=== PATIENT | male | born 1950 | race Asian ===

== ENCOUNTER 2016-12-31 16:53 | Inpatient (IN) | payer SELFPAY ==
[~2016-12-31] VITALS: Ht 175.3 cm; Wt 64.6 kg
[2016-12-31] MEDS ORDERED: ACETAMINOPHEN 325 MG TABLET PO ONE (17:45)
[2016-12-31 17:55] LABS: BASOPHILS # (AUTO) 0.01 K/uL (0.00-0.20); BASOPHILS % (AUTO) 0.1 % (0.0-2.0); EOSINOPHILS % (AUTO) 0.02 % (1.0-6.0); HEMATOCRIT 38.5 % (41-53); HEMOGLOBIN 12.9 g/dL (13.5-17.5); LYMPHOCYTES # (AUTO) 0.9 K/uL (1.0-4.8); LYMPHOCYTES % (AUTO) 6.9 % (22.0-44.0); MEAN CORPUSCULAR HEMOGLOBIN 27.8 pg (26.0-34.0); MEAN CORPUSCULAR HGB CONC 33.6 G/dL (31.0-37.0); MEAN CORPUSCULAR VOLUME 83 fL (80-100); MONOCYTES % (AUTO) 8.1 % (2.0-9.0); NEUTROPHILS # (AUTO) 10.6 K/uL (1.8-7.7); NEUTROPHILS % (AUTO) 84.8 % (40.0-70.0); PLATELET COUNT (AUTO) 199 K/uL (150-450); RED BLOOD CELL COUNT(AUTO) 4.64 MIL/uL (4.50-5.90); RED CELL DISTRIBUTION WIDTH 13.9 % (11.5-14.5); WHITE BLOOD COUNT (AUTO) 12.5 K/uL (4.5-11.0)
[2016-12-31] MEDS ORDERED: SODIUM CHLORIDE 0.9% 1,000 ML IV ONE ×2 (18:00→18:30)
[2016-12-31 18:11] LABS: ALANINE AMINOTRANSFERASE 42 U/L (12-78); ALBUMIN 2.8 g/dL (3.4-5.0); ANION GAP 11 mmol/L (8-16); ASPARTATE AMINOTRANSFERASE 41 U/L (15-37); BILIRUBIN,TOTAL 0.6 mg/dL (0.1-1.0); CALCIUM, TOTAL 8.2 mg/dL (8.8-10.5); CARBON DIOXIDE 26 mmol/L (22-29); CHLORIDE 91 mmol/L (98-107); CREATININE 1.38 mg/dL (0.60-1.30); GLOMERULAR FILTR. RATE CALC 52 mL/min (>60); POTASSIUM 3.7 mmol/L (3.5-5.1); SODIUM SERUM 128 mmol/L (136-145); TOTAL PROTEIN, SERUM 7.8 g/dL (6.4-8.2); UREA NITROGEN, BLOOD 22 mg/dL (7-18)
[2016-12-31 18:20] LABS: LACTIC ACID 1.8 mmol/L (0.4-2.0)
[2016-12-31] MEDS ORDERED: *CLINICAL-CEFEPIME DOSING CLINICAL ONE ×2 (18:30)
[2016-12-31] MEDS ORDERED: CEFEPIME HCL 1 GM in DEXTROSE 5%-WATER 50 ML IV ONE (18:30)
[2016-12-31] MEDS ORDERED: VANCOMYCIN HCL 1 GM/D5% WATER 200 ML IV ONE (18:30)
[2016-12-31] MEDS ORDERED: KETOROLAC TROMETHAMINE 30 MG/ML VIAL IVP ONE (18:30)
[2016-12-31 18:48] LABS: CREATINE KINASE, TOTAL 539 U/L (39-308); RBC MORPHOLOGY COMMENT NORMAL RBC MORPH
[2016-12-31 18:57] LABS: GLUCOSE,POINT OF CARE 379 MG/DL (70-110)
[2016-12-31 19:41] LABS: APPEARANCE,URINE CLEAR (CLEAR); GLUCOSE, URINE (UA) >=1000 mg/dL (NEGATIVE); KETONES,URINE NEGATIVE (NEGATIVE); LEUKOCYTE ESTERASE ,URINE NEGATIVE (NEGATIVE); OCCULT BLOOD,URINE LARGE (NEGATIVE); PROTEIN,URINE SEE CONFIRM (NEGATIVE)
[2016-12-31 19:43] LABS: ADD UA MICROSCOPIC YES
[2016-12-31 19:46] LABS: SULFOSALICYLIC ACID,URINE 3+ (Negative)
[2016-12-31 19:47] LABS: SQUAMOUS EPITHELIAL CELL,UR Rare /LPF (None Seen); WBC,URINE 0-2 /HPF (0-5)
[2016-12-31 19:57] LABS: CREATINE KINASE MB 1.2 ng/mL (0-5)
[2016-12-31 20:22] LABS: GLUCOSE,POINT OF CARE 377 MG/DL (70-110)
[2016-12-31] MEDS ORDERED: ONDANSETRON HCL 4 MG/2 ML VIAL IVP PRN (21:15)
[2016-12-31] MEDS ORDERED: 0.9% SODIUM CHLORIDE 10 ML SYRINGE IVP PRN (21:15)
[2016-12-31] MEDS ORDERED: ACETAMINOPHEN 325 MG TABLET PO PRN (21:15)
[2016-12-31 21:48] VITALS: BP 112/66
[2016-12-31] MEDS ORDERED: PNEUMOCOCCAL VACCINE POLYVALENT 0.5 ML VIAL [PPSV23] IM ONE (23:30)
[2017-01-01] MEDS ORDERED: MORPHINE SULFATE 2 MG/ML SYRINGE IVP PRN (00:15)
[2017-01-01] MEDS ORDERED: *CLINICAL-LEVOFLOXACIN IVPB DOSING CLINICAL ONE ×2 (00:15)
[2017-01-01] MEDS ORDERED: VANCOMYCIN HCL 1 GM/D5% WATER 200 ML IV SCH (00:15)
[2017-01-01] MEDS ORDERED: MAGNESIUM HYDROXIDE SUSPENSION 30 ML UDCUP PO PRN (00:15)
[2017-01-01] MEDS ORDERED: IPRATROPIUM BROMIDE 0.5 MG/2.5 ML NEB SOLUTION NEB PRN (00:15)
[2017-01-01] MEDS ORDERED: HYDROCODONE/ACETAMINOPHEN 5-325 MG TABLET PO PRN (00:15)
[2017-01-01] MEDS ORDERED: DEXTROSE 50%-WATER 25 GM/50 ML SYRINGE IVP PRN (00:15)
[2017-01-01] MEDS ORDERED: ONDANSETRON HCL 4 MG/2 ML VIAL IVP PRN (00:15)
[2017-01-01] MEDS ORDERED: ALBUTEROL SULFATE 2.5 MG/0.5 ML NEB SOLUTION NEB PRN (00:15)
[2017-01-01 00:28] LABS: GLUCOSE COMMENT 1 Received Meds; GLUCOSE,POINT OF CARE 341 MG/DL (70-110)
[2017-01-01 04:49] VITALS: BP 134/79
[2017-01-01] MEDS: ACETAMINOPHEN 325 MG TABLET PO PRN (05:00)
[2017-01-01] MEDS: LEVOFLOXACIN 750 MG/D5% WATER 150 ML IV SCH (05:00)
[2017-01-01] MEDS ORDERED: SODIUM CHLORIDE 0.9% 500 ML IV ONE (05:07)
[2017-01-01 05:26] LABS: BASOPHILS # (AUTO) 0.03 K/uL (0.00-0.20); BASOPHILS % (AUTO) 0.3 % (0.0-2.0); EOSINOPHILS % (AUTO) 0.04 % (1.0-6.0); HEMATOCRIT 39.3 % (41-53); LYMPHOCYTES # (AUTO) 0.8 K/uL (1.0-4.8); LYMPHOCYTES % (AUTO) 6.1 % (22.0-44.0); MEAN CORPUSCULAR HEMOGLOBIN 27.8 pg (26.0-34.0); MEAN CORPUSCULAR HGB CONC 33.1 G/dL (31.0-37.0); MEAN CORPUSCULAR VOLUME 84 fL (80-100); MONOCYTES # (AUTO) 1.1 K/uL (0.1-1.0); MONOCYTES % (AUTO) 8.7 % (2.0-9.0); NEUTROPHILS # (AUTO) 10.7 K/uL (1.8-7.7); NEUTROPHILS % (AUTO) 84.9 % (40.0-70.0); RED BLOOD CELL COUNT(AUTO) 4.68 MIL/uL (4.50-5.90); RED CELL DISTRIBUTION WIDTH 13.8 % (11.5-14.5)
[2017-01-01 05:29] LABS: ALANINE AMINOTRANSFERASE 41 U/L (12-78); ALBUMIN 2.4 g/dL (3.4-5.0); ANION GAP 10 mmol/L (8-16); ASPARTATE AMINOTRANSFERASE 44 U/L (15-37); BILIRUBIN,TOTAL 0.4 mg/dL (0.1-1.0); CALCIUM, TOTAL 7.7 mg/dL (8.8-10.5); CARBON DIOXIDE 25 mmol/L (22-29); CHLORIDE 97 mmol/L (98-107); GLOMERULAR FILTR. RATE CALC > 60 mL/min (>60); PHOSPHORUS 1.9 mg/dL (2.5-4.9); POTASSIUM 3.6 mmol/L (3.5-5.1); SODIUM SERUM 132 mmol/L (136-145); TOTAL PROTEIN, SERUM 7.2 g/dL (6.4-8.2); UREA NITROGEN, BLOOD 15 mg/dL (7-18)
[2017-01-01 05:30] LABS: WHITE BLOOD COUNT (AUTO) 13.9 K/uL (4.5-11.0)
[2017-01-01] MEDS: INSULIN ASPART 100 UNITS/ML SQ SCH ×3 (06:58→17:30)
[2017-01-01] MEDS: INSULIN ASPART 100 UNITS/ML SQ PRN ×4 (06:59→22:01)
[2017-01-01 07:34] VITALS: BP 113/64
[2017-01-01 08:00] LABS: PLATELET COUNT (AUTO) 202 K/uL (150-450)
[2017-01-01] MEDS: VANCOMYCIN HCL 1 GM/D5% WATER 200 ML IV SCH ×2 (08:23→21:21)
[2017-01-01] MEDS: DOCUSATE SODIUM 100 MG CAPSULE PO SCH ×2 (08:23→21:20)
[2017-01-01] MEDS: HEPARIN SODIUM,PORCINE 5,000 UNITS/ML VIAL SQ SCH ×2 (08:23→16:47)
[2017-01-01] MEDS ORDERED: ENOXAPARIN SODIUM 40 MG/0.4 ML PF SYRINGE SQ SCH (09:00)
[2017-01-01] MEDS ORDERED: INSULIN DETEMIR 100 UNITS/ML SQ ONE (10:45)
[2017-01-01 11:49] VITALS: BP 128/76
[2017-01-01] MEDS ORDERED: TUBERCULIN, PURIFIED PROTEIN DERIVATIVE 5 TU/0.1 ML SYG ID ONE (12:15)
[2017-01-01] MEDS: CIPROFLOXACIN HCL 0.3% 2.5 ML OPHTHALMIC SOLUTION OS SCH ×3 (14:00→21:20)
[2017-01-01 16:10] VITALS: BP 125/72
[2017-01-01 20:25] VITALS: BP 122/69
[2017-01-01] MEDS ORDERED: INSULIN DETEMIR 100 UNITS/ML SQ SCH (21:00)
[2017-01-02 00:32] VITALS: BP 123/78
[2017-01-02] MEDS: LEVOFLOXACIN 750 MG/D5% WATER 150 ML IV SCH (00:55)
[2017-01-02] MEDS: HEPARIN SODIUM,PORCINE 5,000 UNITS/ML VIAL SQ SCH ×3 (00:57→16:10)
[2017-01-02] MEDS: CIPROFLOXACIN HCL 0.3% 2.5 ML OPHTHALMIC SOLUTION OS SCH ×5 (05:16→22:00)
[2017-01-02 05:31] VITALS: BP 127/79
[2017-01-02] MEDS: INSULIN ASPART 100 UNITS/ML SQ SCH ×3 (06:37→18:16)
[2017-01-02 06:43] LABS: BASOPHILS # (AUTO) 0.04 K/uL (0.00-0.20); BASOPHILS % (AUTO) 0.4 % (0.0-2.0); EOSINOPHILS % (AUTO) 0.04 % (1.0-6.0); HEMATOCRIT 37.6 % (41-53); HEMOGLOBIN 12.1 g/dL (13.5-17.5); LYMPHOCYTES # (AUTO) 1.2 K/uL (1.0-4.8); LYMPHOCYTES % (AUTO) 9.6 % (22.0-44.0); MEAN CORPUSCULAR HEMOGLOBIN 28.1 pg (26.0-34.0); MEAN CORPUSCULAR HGB CONC 32.3 G/dL (31.0-37.0); MEAN CORPUSCULAR VOLUME 87 fL (80-100); MONOCYTES # (AUTO) 1.1 K/uL (0.1-1.0); NEUTROPHILS # (AUTO) 9.7 K/uL (1.8-7.7); PLATELET COUNT (AUTO) 166 K/uL (150-450); RED BLOOD CELL COUNT(AUTO) 4.31 MIL/uL (4.50-5.90); RED CELL DISTRIBUTION WIDTH 14.2 % (11.5-14.5)
[2017-01-02 07:16] VITALS: BP 123/65
[2017-01-02 07:24] LABS: ALANINE AMINOTRANSFERASE 62 U/L (12-78); ALBUMIN 2.1 g/dL (3.4-5.0); ANION GAP 8 mmol/L (8-16); ASPARTATE AMINOTRANSFERASE 89 U/L (15-37); BILIRUBIN,TOTAL 0.3 mg/dL (0.1-1.0); CALCIUM, TOTAL 8.4 mg/dL (8.8-10.5); CARBON DIOXIDE 28 mmol/L (22-29); CHLORIDE 98 mmol/L (98-107); CREATININE 0.89 mg/dL (0.60-1.30); GLOMERULAR FILTR. RATE CALC > 60 mL/min (>60); PHOSPHORUS 2.5 mg/dL (2.5-4.9); SODIUM SERUM 134 mmol/L (136-145); TOTAL PROTEIN, SERUM 6.8 g/dL (6.4-8.2); UREA NITROGEN, BLOOD 16 mg/dL (7-18)
[2017-01-02] MEDS: VANCOMYCIN HCL 1.5 GM in DEXTROSE 5%-WATER 250 ML IV SCH ×3 (08:33→23:15)
[2017-01-02] MEDS: DOCUSATE SODIUM 100 MG CAPSULE PO SCH ×2 (08:34→20:55)
[2017-01-02 11:01] VITALS: BP 117/70
[2017-01-02] MEDS: INSULIN ASPART 100 UNITS/ML SQ PRN ×2 (11:53→18:48)
[2017-01-02] MEDS ORDERED: POTASSIUM CHLORIDE 20 MEQ ER TABLET PO ONE (15:00)
[2017-01-02 15:43] VITALS: BP 125/66
[2017-01-02] MEDS: ACETAMINOPHEN 325 MG TABLET PO PRN (16:09)
[2017-01-02] MEDS: NICOTINE 21 MG/24 HOUR PATCH TD SCH (16:11)
[2017-01-02 17:43] LABS: GLUCOSE COMMENT 1 Received Meds; GLUCOSE,POINT OF CARE 192 MG/DL (70-110)
[2017-01-02 17:43] LABS: GLUCOSE,POINT OF CARE 79 MG/DL (70-110)
[2017-01-02 17:43] LABS: GLUCOSE,POINT OF CARE 195 MG/DL (70-110)
[2017-01-02 17:43] LABS: GLUCOSE COMMENT 1 Received Meds; GLUCOSE,POINT OF CARE 124 MG/DL (70-110)
[2017-01-02 17:43] LABS: GLUCOSE COMMENT 1 Received Meds; GLUCOSE,POINT OF CARE 298 MG/DL (70-110)
[2017-01-02 17:43] LABS: GLUCOSE,POINT OF CARE 153 MG/DL (70-110)
[2017-01-02 19:33] VITALS: BP 119/65
[2017-01-02] MEDS: INSULIN DETEMIR 100 UNITS/ML SQ SCH (21:03)
[2017-01-03 00:04] VITALS: BP 122/72
[2017-01-03] MEDS: LEVOFLOXACIN 750 MG/D5% WATER 150 ML IV SCH (01:58)
[2017-01-03 05:39] LABS: BASOPHILS # (AUTO) 0.02 K/uL (0.00-0.20); BASOPHILS % (AUTO) 0.2 % (0.0-2.0); EOSINOPHILS # (AUTO) 0.09 K/uL (0.00-0.70); HEMATOCRIT 35.5 % (41-53); HEMOGLOBIN 11.8 g/dL (13.5-17.5); LYMPHOCYTES # (AUTO) 1.2 K/uL (1.0-4.8); LYMPHOCYTES % (AUTO) 11.3 % (22.0-44.0); MEAN CORPUSCULAR HEMOGLOBIN 28.3 pg (26.0-34.0); MEAN CORPUSCULAR HGB CONC 33.3 G/dL (31.0-37.0); MEAN CORPUSCULAR VOLUME 85 fL (80-100); MONOCYTES # (AUTO) 0.7 K/uL (0.1-1.0); MONOCYTES % (AUTO) 6.7 % (2.0-9.0); NEUTROPHILS # (AUTO) 8.4 K/uL (1.8-7.7); PLATELET COUNT (AUTO) 186 K/uL (150-450); RED BLOOD CELL COUNT(AUTO) 4.19 MIL/uL (4.50-5.90); RED CELL DISTRIBUTION WIDTH 14.3 % (11.5-14.5); WHITE BLOOD COUNT (AUTO) 10.4 K/uL (4.5-11.0)
[2017-01-03 05:57] LABS: ANION GAP 10 mmol/L (8-16); CALCIUM, TOTAL 8.6 mg/dL (8.8-10.5); CARBON DIOXIDE 26 mmol/L (22-29); CHLORIDE 97 mmol/L (98-107); CREATININE 0.76 mg/dL (0.60-1.30); GLOMERULAR FILTR. RATE CALC > 60 mL/min (>60); POTASSIUM 3.5 mmol/L (3.5-5.1); PROTHROMBIN TIME 10.6 SEC (9.4-11.6); SODIUM SERUM 133 mmol/L (136-145); UREA NITROGEN, BLOOD 14 mg/dL (7-18)
[2017-01-03] MEDS: CIPROFLOXACIN HCL 0.3% 2.5 ML OPHTHALMIC SOLUTION OS SCH ×5 (06:00→21:19)
[2017-01-03 06:09] VITALS: BP 101/60
[2017-01-03] MEDS: INSULIN ASPART 100 UNITS/ML SQ SCH ×3 (08:00→17:45)
[2017-01-03] MEDS: DOCUSATE SODIUM 100 MG CAPSULE PO SCH ×2 (08:45→21:21)
[2017-01-03] MEDS: VANCOMYCIN HCL 1.5 GM in DEXTROSE 5%-WATER 250 ML IV SCH ×2 (08:45→16:26)
[2017-01-03] MEDS: HEPARIN SODIUM,PORCINE 5,000 UNITS/ML VIAL SQ SCH ×3 (08:45→16:00)
[2017-01-03] MEDS: NICOTINE 21 MG/24 HOUR PATCH TD SCH (08:45)
[2017-01-03 10:21] VITALS: BP 98/55
[2017-01-03 11:32] LABS: GLUCOSE,POINT OF CARE 232 MG/DL (70-110)
[2017-01-03] MEDS: INSULIN ASPART 100 UNITS/ML SQ PRN ×3 (12:14→21:40)
[2017-01-03 12:49] VITALS: BP 124/76
[2017-01-03] MEDS ORDERED: SODIUM CHLORIDE 3% 15 ML NEB SOLUTION NEB ONE (14:10)
[2017-01-03 15:53] LABS: COCCIDIOIDES IMMITIS AB IGG <0.150 Abs; COCCIDIOIDES IMMITIS AB IGM <0.150 Abs
[2017-01-03 16:22] LABS: GLUCOSE,POINT OF CARE 125 MG/DL (70-110)
[2017-01-03 16:22] LABS: GLUCOSE,POINT OF CARE 102 MG/DL (70-110)
[2017-01-03 16:23] LABS: GLUCOSE,POINT OF CARE 235 MG/DL (70-110)
[2017-01-03 16:28] VITALS: BP 130/68
[2017-01-03] MEDS ORDERED: LORazepam 1 MG TABLET PO PRN (18:00)
[2017-01-03] MEDS: INSULIN DETEMIR 100 UNITS/ML SQ SCH (21:00)
[2017-01-04] MEDS ORDERED: SODIUM CHLORIDE 0.9% 250 ML IV ONE ×2 (00:04→20:15)
[2017-01-04] MEDS: HEPARIN SODIUM,PORCINE 5,000 UNITS/ML VIAL SQ SCH ×3 (00:09→16:00)
[2017-01-04] MEDS: VANCOMYCIN HCL 1.5 GM in DEXTROSE 5%-WATER 250 ML IV SCH ×2 (00:09→20:23)
[2017-01-04 00:35] VITALS: BP 110/62
[2017-01-04] MEDS: LEVOFLOXACIN 750 MG/D5% WATER 150 ML IV SCH (02:31)
[2017-01-04 05:28] VITALS: BP 141/71
[2017-01-04] MEDS: CIPROFLOXACIN HCL 0.3% 2.5 ML OPHTHALMIC SOLUTION OS SCH ×5 (06:05→22:18)
[2017-01-04] MEDS: INSULIN ASPART 100 UNITS/ML SQ PRN ×3 (06:08→20:40)
[2017-01-04 07:24] LABS: ANION GAP 9 mmol/L (8-16); CALCIUM, TOTAL 8.4 mg/dL (8.8-10.5); CARBON DIOXIDE 27 mmol/L (22-29); CHLORIDE 97 mmol/L (98-107); CREATININE 0.89 mg/dL (0.60-1.30); GLOMERULAR FILTR. RATE CALC > 60 mL/min (>60); POTASSIUM 4.3 mmol/L (3.5-5.1); SODIUM SERUM 133 mmol/L (136-145); UREA NITROGEN, BLOOD 14 mg/dL (7-18)
[2017-01-04 07:36] VITALS: BP 115/61
[2017-01-04] MEDS: INSULIN ASPART 100 UNITS/ML SQ SCH ×3 (08:03→17:58)
[2017-01-04] MEDS: DOCUSATE SODIUM 100 MG CAPSULE PO SCH ×2 (09:47→20:24)
[2017-01-04] MEDS: NICOTINE 21 MG/24 HOUR PATCH TD SCH (09:48)
[2017-01-04 11:18] VITALS: BP 107/60
[2017-01-04 11:43] LABS: GLUCOSE,POINT OF CARE 178 MG/DL (70-110)
[2017-01-04 11:43] LABS: GLUCOSE COMMENT 1 Received Meds; GLUCOSE,POINT OF CARE 280 MG/DL (70-110)
[2017-01-04 11:43] LABS: GLUCOSE,POINT OF CARE 98 MG/DL (70-110)
[2017-01-04 12:09] LABS: ORGANISM ID Not indicated.
[2017-01-04 15:59] VITALS: BP 129/75
[2017-01-04 20:05] VITALS: BP 99/51
[2017-01-04 20:17] LABS: GLUCOSE,POINT OF CARE 120 MG/DL (70-110)
[2017-01-04] MEDS: INSULIN DETEMIR 100 UNITS/ML SQ SCH (20:27)
[2017-01-05 00:19] VITALS: BP 138/78
[2017-01-05] MEDS: HEPARIN SODIUM,PORCINE 5,000 UNITS/ML VIAL SQ SCH ×3 (00:40→16:35)
[2017-01-05] MEDS: LEVOFLOXACIN 750 MG/D5% WATER 150 ML IV SCH (00:40)
[2017-01-05] MEDS: CIPROFLOXACIN HCL 0.3% 2.5 ML OPHTHALMIC SOLUTION OS SCH ×5 (06:09→22:00)
[2017-01-05 06:10] VITALS: BP 127/70
[2017-01-05] MEDS: INSULIN ASPART 100 UNITS/ML SQ PRN ×3 (06:11→18:01)
[2017-01-05 06:44] LABS: ANION GAP 7 mmol/L (8-16); CALCIUM, TOTAL 8.9 mg/dL (8.8-10.5); CARBON DIOXIDE 32 mmol/L (22-29); CHLORIDE 101 mmol/L (98-107); CREATININE 0.79 mg/dL (0.60-1.30); GLOMERULAR FILTR. RATE CALC > 60 mL/min (>60); POTASSIUM 4.1 mmol/L (3.5-5.1); SODIUM SERUM 140 mmol/L (136-145); UREA NITROGEN, BLOOD 12 mg/dL (7-18)
[2017-01-05 07:13] VITALS: BP 113/67
[2017-01-05] MEDS: VANCOMYCIN HCL 1.5 GM in DEXTROSE 5%-WATER 250 ML IV SCH ×2 (09:20→21:00)
[2017-01-05] MEDS: NICOTINE 21 MG/24 HOUR PATCH TD SCH (09:20)
[2017-01-05] MEDS: DOCUSATE SODIUM 100 MG CAPSULE PO SCH ×2 (09:20→21:00)
[2017-01-05] MEDS: INSULIN ASPART 100 UNITS/ML SQ SCH ×3 (09:30→18:00)
[2017-01-05 11:43] VITALS: BP 129/75
[2017-01-05 13:02] LABS: GLUCOSE,POINT OF CARE 136 MG/DL (70-110)
[2017-01-05 13:03] LABS: GLUCOSE,POINT OF CARE 86 MG/DL (70-110)
[2017-01-05 13:33] LABS: GLUCOSE,POINT OF CARE 126 MG/DL (70-110)
[2017-01-05 13:33] LABS: GLUCOSE COMMENT 1 Received Meds; GLUCOSE,POINT OF CARE 131 MG/DL (70-110)
[2017-01-05 19:48] VITALS: BP 117/65
[2017-01-05] MEDS: INSULIN DETEMIR 100 UNITS/ML SQ SCH (21:00)
[2017-01-05 23:02] LABS: GLUCOSE,POINT OF CARE 53 MG/DL (70-110)
[2017-01-05 23:02] LABS: GLUCOSE,POINT OF CARE 89 MG/DL (70-110)
[2017-01-05 23:58] VITALS: BP 148/89
[2017-01-06] MEDS: LEVOFLOXACIN 750 MG/D5% WATER 150 ML IV SCH (01:00)
[2017-01-06] MEDS: HEPARIN SODIUM,PORCINE 5,000 UNITS/ML VIAL SQ SCH ×3 (01:00→17:34)
[2017-01-06 04:55] VITALS: BP 132/76
[2017-01-06] MEDS: CIPROFLOXACIN HCL 0.3% 2.5 ML OPHTHALMIC SOLUTION OS SCH ×5 (06:00→22:00)
[2017-01-06 06:59] LABS: BASOPHILS % (AUTO) 0.3 % (0.0-2.0); EOSINOPHILS % (AUTO) 2.5 % (1.0-6.0); HEMOGLOBIN 12.4 g/dL (13.5-17.5); LYMPHOCYTES # (AUTO) 1.8 K/uL (1.0-4.8); LYMPHOCYTES % (AUTO) 16.9 % (22.0-44.0); MEAN CORPUSCULAR HEMOGLOBIN 28.5 pg (26.0-34.0); MEAN CORPUSCULAR HGB CONC 32.6 G/dL (31.0-37.0); MEAN CORPUSCULAR VOLUME 87 fL (80-100); MONOCYTES # (AUTO) 0.8 K/uL (0.1-1.0); MONOCYTES % (AUTO) 7.7 % (2.0-9.0); NEUTROPHILS # (AUTO) 7.8 K/uL (1.8-7.7); NEUTROPHILS % (AUTO) 72.6 % (40.0-70.0); PLATELET COUNT (AUTO) 302 K/uL (150-450); RED BLOOD CELL COUNT(AUTO) 4.35 MIL/uL (4.50-5.90); RED CELL DISTRIBUTION WIDTH 14.3 % (11.5-14.5); WHITE BLOOD COUNT (AUTO) 10.7 K/uL (4.5-11.0)
[2017-01-06 07:16] LABS: ANION GAP 7 mmol/L (8-16); CALCIUM, TOTAL 8.8 mg/dL (8.8-10.5); CARBON DIOXIDE 30 mmol/L (22-29); CHLORIDE 100 mmol/L (98-107); CREATININE 0.84 mg/dL (0.60-1.30); GLOMERULAR FILTR. RATE CALC > 60 mL/min (>60); POTASSIUM 4.7 mmol/L (3.5-5.1); SODIUM SERUM 137 mmol/L (136-145); UREA NITROGEN, BLOOD 15 mg/dL (7-18)
[2017-01-06] MEDS: INSULIN ASPART 100 UNITS/ML SQ SCH ×2 (07:30→11:30)
[2017-01-06 07:41] VITALS: BP 101/60
[2017-01-06] MEDS: INSULIN ASPART 100 UNITS/ML SQ PRN ×4 (07:59→20:30)
[2017-01-06] MEDS: VANCOMYCIN HCL 1.5 GM in DEXTROSE 5%-WATER 250 ML IV SCH (07:59)
[2017-01-06] MEDS: NICOTINE 21 MG/24 HOUR PATCH TD SCH (10:42)
[2017-01-06] MEDS: DOCUSATE SODIUM 100 MG CAPSULE PO SCH ×2 (10:42→20:27)
[2017-01-06 11:19] VITALS: BP 98/60
[2017-01-06 15:24] VITALS: BP 134/69
[2017-01-06 17:13] LABS: GLUCOSE COMMENT 1 Received Meds; GLUCOSE,POINT OF CARE 283 MG/DL (70-110)
[2017-01-06 20:24] VITALS: BP 113/63
[2017-01-06] MEDS: INSULIN DETEMIR 100 UNITS/ML SQ SCH (20:30)
[2017-01-07] VITALS (7 sets, daily range): BP systolic 108–144; BP diastolic 62–80
[2017-01-07] MEDS: HEPARIN SODIUM,PORCINE 5,000 UNITS/ML VIAL SQ SCH ×4 (01:40→23:27)
[2017-01-07] MEDS: LEVOFLOXACIN 750 MG/D5% WATER 150 ML IV SCH ×2 (01:41→23:43)
[2017-01-07] MEDS: CIPROFLOXACIN HCL 0.3% 2.5 ML OPHTHALMIC SOLUTION OS SCH ×5 (06:00→20:01)
[2017-01-07 06:31] LABS: CARBON DIOXIDE 31 mmol/L (22-29); CHLORIDE 100 mmol/L (98-107); CREATININE 0.84 mg/dL (0.60-1.30); GLOMERULAR FILTR. RATE CALC > 60 mL/min (>60); POTASSIUM 4.5 mmol/L (3.5-5.1); UREA NITROGEN, BLOOD 15 mg/dL (7-18)
[2017-01-07 06:44] LABS: ANION GAP 7 mmol/L (8-16); SODIUM SERUM 138 mmol/L (136-145)
[2017-01-07] MEDS ORDERED: VANCOMYCIN HCL 1 GM/D5% WATER 200 ML IV SCH (08:00)
[2017-01-07] MEDS: DOCUSATE SODIUM 100 MG CAPSULE PO SCH ×2 (08:02→20:01)
[2017-01-07] MEDS: NICOTINE 21 MG/24 HOUR PATCH TD SCH (08:03)
[2017-01-07] MEDS: INSULIN ASPART 100 UNITS/ML SQ PRN ×4 (08:04→20:32)
[2017-01-07 19:27] LABS: GLUCOSE COMMENT 1 Received Meds; GLUCOSE,POINT OF CARE 184 MG/DL (70-110)
[2017-01-07 19:27] LABS: GLUCOSE COMMENT 1 Received Meds; GLUCOSE,POINT OF CARE 188 MG/DL (70-110)
[2017-01-07 19:42] LABS: GLUCOSE COMMENT 1 Received Meds; GLUCOSE,POINT OF CARE 183 MG/DL (70-110)
[2017-01-07 19:42] LABS: GLUCOSE COMMENT 1 Received Meds; GLUCOSE,POINT OF CARE 216 MG/DL (70-110)
[2017-01-07 19:42] LABS: GLUCOSE,POINT OF CARE 187 MG/DL (70-110)
[2017-01-07 19:43] LABS: GLUCOSE COMMENT 1 Received Meds; GLUCOSE,POINT OF CARE 249 MG/DL (70-110)
[2017-01-07] MEDS: INSULIN DETEMIR 100 UNITS/ML SQ SCH (20:31)
[2017-01-07 20:42] LABS: GLUCOSE,POINT OF CARE 317 MG/DL (70-110)
[2017-01-07] MEDS ORDERED: SODIUM CHLORIDE 0.9% 500 ML IV ONE (23:10)
[2017-01-08 05:11] VITALS: BP 109/67
[2017-01-08] MEDS: CIPROFLOXACIN HCL 0.3% 2.5 ML OPHTHALMIC SOLUTION OS SCH ×2 (06:28→09:46)
[2017-01-08] MEDS: INSULIN ASPART 100 UNITS/ML SQ PRN ×2 (06:28→11:33)
[2017-01-08 06:38] LABS: GLUCOSE COMMENT 1 Received Meds; GLUCOSE,POINT OF CARE 142 MG/DL (70-110)
[2017-01-08 06:46] LABS: ANION GAP 7 mmol/L (8-16); CALCIUM, TOTAL 9.4 mg/dL (8.8-10.5); CARBON DIOXIDE 29 mmol/L (22-29); CHLORIDE 102 mmol/L (98-107); CREATININE 0.81 mg/dL (0.60-1.30); GLOMERULAR FILTR. RATE CALC > 60 mL/min (>60); POTASSIUM 4.6 mmol/L (3.5-5.1); SODIUM SERUM 138 mmol/L (136-145); UREA NITROGEN, BLOOD 17 mg/dL (7-18)
[2017-01-08 07:03] LABS: GLUCOSE COMMENT 1 Received Meds; GLUCOSE,POINT OF CARE 170 MG/DL (70-110)
[2017-01-08 07:26] VITALS: BP 88/54
[2017-01-08] MEDS: HEPARIN SODIUM,PORCINE 5,000 UNITS/ML VIAL SQ SCH (08:36)
[2017-01-08] MEDS: DOCUSATE SODIUM 100 MG CAPSULE PO SCH (08:36)
[2017-01-08] MEDS: NICOTINE 21 MG/24 HOUR PATCH TD SCH (08:37)
[2017-01-08] MEDS ORDERED: LEVO250T2 PO (10:15)
[2017-01-08 11:22] VITALS: BP 96/61
[2017-01-08 11:42] LABS: GLUCOSE COMMENT 1 Received Meds; GLUCOSE,POINT OF CARE 140 MG/DL (70-110)
[2017-01-08] MEDS ORDERED: LEVO500 PO (12:54)
== END 2017-01-08 13:30 | disposition home or self-care (01) | DRG 871 ==
LOC: EMS 16:57 → 5S 20:53 → 5N 01-01 18:00 → 6N 01-07 18:45
PROVIDERS: ADMIT Hospitalist; ATTEND Hospitalist
PROC: 3E0234Z Introduction of Serum, Toxoid and Vaccine into Muscle, Percutaneous Approach (ICD-10-PCS; principal; 2016-12-31)
DX: A41.9 Sepsis, unspecified organism (principal); A48.1 Legionnaires' disease; G93.40 Encephalopathy, unspecified; E11.65 Type 2 diabetes mellitus with hyperglycemia; F25.9 Schizoaffective disorder, unspecified; F17.210 Nicotine dependence, cigarettes, uncomplicated; H05.20 Unspecified exophthalmos; H10.9 Unspecified conjunctivitis; I70.0 Atherosclerosis of aorta; K02.9 Dental caries, unspecified; K05.30 Chronic periodontitis, unspecified; Z59.0 Homelessness; Z78.9 Other specified health status; Z79.4 Long term (current) use of insulin; Z88.1 Allergy status to other antibiotic agents; Z91.19 Patient's noncompliance with other medical treatment and regimen; Z23 Encounter for immunization
CPT/HCPCS: 70480; 71250; 82962; 83036; 83605; 83735; 84100; 86635; 87015; 87040; 87070; 87205; 87449; 87899; 90471; 93005; 94640; 96365; 96366; 99291; J0692; J1644; J1815; J1956; J3370; J7040; J7050; J7060